=== PATIENT | male | born 1960 | race Caucasian/White ===

== ENCOUNTER 2016-07-09 17:14 | Emergency (ER) | payer MEDICAID, OTHER, SELFPAY ==
[~2016-07-09] VITALS: Ht 175.3 cm; Wt 125.5 kg
[2016-07-09 17:17] VITALS: BP 137/85
== END 2016-07-09 19:44 ==
LOC: ED 19:00
DX: S06.9X0A Unspecified intracranial injury without loss of consciousness, initial encounter (principal); S50.01XA Contusion of right elbow, initial encounter; I10 Essential (primary) hypertension; E78.5 Hyperlipidemia, unspecified; M54.30 Sciatica, unspecified side; W11.XXXA Fall on and from ladder, initial encounter; Y93.89 Activity, other specified; Y92.89 Other specified places as the place of occurrence of the external cause; Y99.8 Other external cause status
CPT/HCPCS: 70450; 72050; 72110

== ENCOUNTER 2016-07-15 16:58 | Emergency (ER) | payer OTHER ==
[~2016-07-15] VITALS: Ht 172.7 cm; Wt 122.2 kg
[2016-07-15] MEDS ORDERED: DIAZEPAM 5 MG TABLET ONE (18:16)
[2016-07-15] MEDS ORDERED: HYDROmorphone 1 MG/ML, 1ML ONE (18:16)
[2016-07-15] MEDS ORDERED: KETOROLAC 30 MG/1 ML ONE (18:17)
[2016-07-15] MEDS ORDERED: ONDANSETRON ODT 4 MG ONE (18:17)
[2016-07-15] MEDS ORDERED: DEXAMETHASONE 4 MG/ML, 5ML ONE (18:17)
[2016-07-15] MEDS ORDERED: DEXAMETHASONE 4 MG/ML, 1ML PO ONE (18:30)
[2016-07-15] MEDS ORDERED: ONDANSETRON ODT 4 MG PO ONE (18:30)
[2016-07-15] MEDS ORDERED: HYDROmorphone 1 MG/ML, 1ML IM ONE (18:30)
[2016-07-15] MEDS ORDERED: KETOROLAC 30 MG/1 ML IM ONE (18:30)
[2016-07-15] MEDS ORDERED: DIAZEPAM 5 MG TABLET PO ONE (18:30)
[2016-07-15 19:22] VITALS: BP 139/86
== END 2016-07-15 20:04 | disposition home or self-care (01) ==
LOC: ED 19:58
DX: S33.5XXA Sprain of ligaments of lumbar spine, initial encounter (principal); S13.9XXA Sprain of joints and ligaments of unspecified parts of neck, initial encounter; S23.9XXA Sprain of unspecified parts of thorax, initial encounter; S06.0X0A Concussion without loss of consciousness, initial encounter; M54.16 Radiculopathy, lumbar region; E78.5 Hyperlipidemia, unspecified; I10 Essential (primary) hypertension; W11.XXXA Fall on and from ladder, initial encounter; Y93.89 Activity, other specified; Y99.8 Other external cause status; Y92.89 Other specified places as the place of occurrence of the external cause
CPT/HCPCS: 72072; 96372; 99284; J1100; J1170; J1885; Q0162

== ENCOUNTER 2016-09-12 12:42 | Emergency (ER) | payer OTHER ==
[~2016-09-12] VITALS: Ht 172.7 cm; Wt 118.2 kg
[2016-09-12 12:54] VITALS: BP 129/86
== END 2016-09-12 14:11 | disposition home or self-care (01) ==
LOC: ED 13:40
DX: G89.11 Acute pain due to trauma (principal); M54.5 Low back pain; M25.552 Pain in left hip; M25.551 Pain in right hip; M25.561 Pain in right knee; E78.5 Hyperlipidemia, unspecified; I10 Essential (primary) hypertension
CPT/HCPCS: 99283

== ENCOUNTER 2016-09-20 08:31 | Emergency (ER) | payer OTHER ==
[~2016-09-20] VITALS: Ht 175.3 cm; Wt 116.0 kg
[2016-09-20] MEDS ORDERED: HYDROmorphone 1 MG/ML, 1ML IM ONE (09:00)
[2016-09-20] MEDS ORDERED: DIAZEPAM 5 MG TABLET PO ONE (09:00)
[2016-09-20] MEDS ORDERED: KETOROLAC 30 MG/1 ML IM ONE (09:00)
[2016-09-20] MEDS ORDERED: HYDROmorphone 1 MG/ML, 1ML ONE (09:04)
[2016-09-20] MEDS ORDERED: DIAZEPAM 5 MG TABLET ONE (09:05)
[2016-09-20] MEDS ORDERED: KETOROLAC 30 MG/1 ML ONE (09:05)
[2016-09-20 11:04] VITALS: BP 133/68
== END 2016-09-20 11:08 | disposition home or self-care (01) ==
LOC: ED 09:00
DX: G89.11 Acute pain due to trauma (principal); E78.5 Hyperlipidemia, unspecified; I10 Essential (primary) hypertension; M10.9 Gout, unspecified; M51.36 Other intervertebral disc degeneration, lumbar region; M51.16 Intervertebral disc disorders with radiculopathy, lumbar region; M51.37 Other intervertebral disc degeneration, lumbosacral region; W11.XXXA Fall on and from ladder, initial encounter; Y93.89 Activity, other specified; Y99.0 Civilian activity done for income or pay; Y92.69 Other specified industrial and construction area as the place of occurrence of the external cause
CPT/HCPCS: 72110; 73564; 96372; 99284; J1170; J1885

== ENCOUNTER → 2017-02-25 | Outpatient (CLI) | payer OTHER ==
[~2017-02-25] MED LIST: FENTANYL PF 100 MCG/2ML ONE; MIDAZOLAM 1 MG/ML, 5ML ONE
== END | disposition home or self-care (01) ==
LOC: RAD 09:51
PROVIDERS: ATTEND Pain Medicine Interventional Pain Medicine
DX: M48.061 Spinal stenosis, lumbar region without neurogenic claudication (principal); G95.89 Other specified diseases of spinal cord; M48.36 Traumatic spondylopathy, lumbar region
CPT/HCPCS: 72141; 72148; 99156; 99157; J2250; J3010

== ENCOUNTER 2017-12-20 21:26 | Emergency (ER) | payer MEDICAID, OTHER ==
[~2017-12-20] VITALS: Ht 172.7 cm; Wt 123.6 kg
[2017-12-20] MEDS ORDERED: MAALOX/HYOSCYAMINE/LIDOCAINE 45 ML BTL PO ONE (22:00)
[2017-12-20] MEDS ORDERED: ACETAMINOPHEN 500 MG TABLET PO ONE (22:00)
[2017-12-20 22:07] LABS: BASOPHILS # (AUTO) 0.03 x10^3/uL (0-0.1); BASOPHILS % (AUTO) 0 % (0-1); EOSINOPHILS % (AUTO) 3 % (1-7); LYMPHOCYTES # (AUTO) 2.23 x10^3/uL (1-3.4); LYMPHOCYTES % (AUTO) 30 % (22-44); MD NO; MEAN CORPUSCULAR HEMOGLOBIN 32.7 pg (27.5-34.5); MEAN CORPUSCULAR VOLUME 93.4 fL (81-97); MEAN PLATELET VOLUME 8.1 fL (7.4-10.4); MONOCYTES # (AUTO) 0.45 x10^3/uL (0.2-0.8); MONOCYTES % (AUTO) 6 % (2-9); NEUTROPHILS # (AUTO) 4.66 x10^3/uL (1.8-6.8); NEUTROPHILS % (AUTO) 62 % (42-75); PLATELET COUNT 266 x10^3/uL (130-400); RED BLOOD COUNT 4.88 x10^6/uL (4.38-5.82); RED CELL DISTRIBUTION WIDTH 13.7 % (9.4-14.8)
[2017-12-20] MEDS ORDERED: ACETAMINOPHEN 500 MG TABLET ONE (22:09)
[2017-12-20] MEDS ORDERED: MAALOX/HYOSCYAMINE/LIDOCAINE 45 ML BTL ONE (22:10)
[2017-12-20 22:19] LABS: ALBUMIN 3.8 g/dL (3.4-5.0); ANION GAP 9 mmol/L (5-15); CALCIUM 8.7 mg/dL (8.5-10.1); CHLORIDE 106 mmol/L (98-107); CREATININE 1.01 mg/dL (0.7-1.3)
[2017-12-20 22:23] LABS: ALKALINE PHOSPHATASE 114 U/L (45-117); BILIRUBIN,TOTAL 0.3 mg/dL (0.2-1.0); TOTAL PROTEIN 7.5 g/dL (6.4-8.2); TROPONIN I < 0.015 ng/mL (0.000-0.045)
[2017-12-20 22:41] LABS: ALANINE AMINOTRANSFERASE 60 U/L (12-78)
[2017-12-20 23:23] VITALS: BP 132/75
== END 2017-12-20 23:24 | disposition home or self-care (01) ==
LOC: ED 23:12
DX: K29.00 Acute gastritis without bleeding (principal); E78.5 Hyperlipidemia, unspecified; I10 Essential (primary) hypertension; F17.200 Nicotine dependence, unspecified, uncomplicated
CPT/HCPCS: 36415; 71045; 80053; 83690; 84484; 85025; 93005; 99285

== ENCOUNTER 2018-01-24 05:25 | Emergency (ER) | payer MEDICAID ==
[~2018-01-24] VITALS: Ht 172.7 cm; Wt 118.1 kg
[2018-01-24 05:27] VITALS: BP 169/100
[2018-01-24] MEDS ORDERED: TRAMADOL (05:31)
[2018-01-24] MEDS ORDERED: FLEXERIL (05:31)
[2018-01-24] MEDS ORDERED: TYLENOL (05:31)
[2018-01-24] MEDS ORDERED: OXYcodone/APAP 5/325MG TABLET ONE (05:49)
[2018-01-24] MEDS ORDERED: OXYcodone/APAP 5/325MG TABLET PO ONE (06:00)
== END 2018-01-24 06:00 | disposition home or self-care (01) ==
LOC: ED 05:33
DX: K02.9 Dental caries, unspecified (principal); K08.89 Other specified disorders of teeth and supporting structures; G89.29 Other chronic pain; I10 Essential (primary) hypertension; E78.5 Hyperlipidemia, unspecified
CPT/HCPCS: 99283

== ENCOUNTER 2019-04-22 02:29 | Emergency (ER) | payer SELFPAY ==
[~2019-04-22] VITALS: Ht 172.7 cm; Wt 121.7 kg
[~2019-04-22 02:29] MED LIST changes: -FENTANYL PF 100 MCG/2ML ONE; +FLEXERIL; -MIDAZOLAM 1 MG/ML, 5ML ONE; +TRAMADOL; +TYLENOL
--- NOTE | 2019-04-22 03:38 | NUR ---
PT TO RM FROM LOBBY. CARE ASSUMED AND UA SENT. ERP IN TO EVAL.
[2019-04-22 03:39] LABS: MICROSCOPIC NOT IND
[2019-04-22 03:42] LABS: CULTURE INDICATED? NO
[2019-04-22 04:10] LABS: BASOPHILS # (AUTO) 0.02 x10^3/uL (0-0.1); BASOPHILS % (AUTO) 0 % (0-1); EOSINOPHILS # (AUTO) 0.17 x10^3/uL (0-0.4); EOSINOPHILS % (AUTO) 2 % (1-7); LYMPHOCYTES # (AUTO) 2.03 x10^3/uL (1-3.4); LYMPHOCYTES % (AUTO) 22 % (22-44); MD NO; MEAN CORPUSCULAR HEMOGLOBIN 32.6 pg (27.5-34.5); MEAN CORPUSCULAR HGB CONC 35.4 g/dL (33.2-36.2); MEAN CORPUSCULAR VOLUME 92.1 fL (81-97); MEAN PLATELET VOLUME 7.8 fL (7.4-10.4); MONOCYTES # (AUTO) 0.68 x10^3/uL (0.2-0.8); MONOCYTES % (AUTO) 8 % (2-9); NEUTROPHILS # (AUTO) 6.24 x10^3/uL (1.8-6.8); NEUTROPHILS % (AUTO) 68 % (42-75); PLATELET COUNT 291 x10^3/uL (130-400); RED BLOOD COUNT 4.79 x10^6/uL (4.38-5.82); RED CELL DISTRIBUTION WIDTH 13.9 % (9.4-14.8)
[2019-04-22 04:25] LABS: ALBUMIN 3.5 g/dL (3.4-5.0); CALCIUM 8.5 mg/dL (8.5-10.1)
[2019-04-22 04:33] LABS: ALKALINE PHOSPHATASE 89 U/L (45-117); BILIRUBIN,TOTAL 0.6 mg/dL (0.2-1.0); CREATININE 1.07 mg/dL (0.7-1.3)
[2019-04-22 04:51] VITALS: BP 122/83
--- NOTE | 2019-04-22 04:51 | NUR ---
PT SITTING IN CHAIR. DENIES NEEDS AT THIS TIME. CALL LIGHT IN REACH. PT UPDATED TO POC--AWAITING LAB RESULTS.
--- NOTE | 2019-04-22 05:15 | NUR ---
REPORT RECEIVED FROM SHIRLEY CLIFTON. ASSUMED CARE OF PT
[2019-04-22 05:18] LABS: ALANINE AMINOTRANSFERASE 46 U/L (12-78); ANION GAP 7 mmol/L (5-15); CHLORIDE 107 mmol/L (98-107)
[2019-04-22 05:20] LABS: TOTAL PROTEIN 7.2 g/dL (6.4-8.2)
--- NOTE | 2019-04-22 06:05 | NUR ---
Patient/Caregiver given discharge instructions and they have confirmed that they understand the instructions. Patient ambulatory with steady gait.
== END 2019-04-22 06:07 | disposition home or self-care (01) ==
LOC: ED 05:07
DX: M54.5 Low back pain (principal); I10 Essential (primary) hypertension; E78.5 Hyperlipidemia, unspecified; G89.29 Other chronic pain
CPT/HCPCS: 36415; 80053; 81003; 83690; 85025; 99283

== ENCOUNTER 2019-05-04 14:39 | Emergency (ER) | payer SELFPAY ==
[~2019-05-04] VITALS: Ht 167.6 cm; Wt 126.1 kg
[2019-05-04] MEDS ORDERED: KETOROLAC 30 MG/1 ML IM ONE (15:00)
[2019-05-04] MEDS ORDERED: ALBUTEROL/IPRATROPIUM 2.5MG/0.5MG, 3 ML NPPB ONE ×2 (15:00→16:00)
[2019-05-04] MEDS ORDERED: SODIUM CHLORIDE FLUSH 10ML SYR IVF ONE (15:00)
[2019-05-04 15:13] LABS: BASOPHILS % (AUTO) 0 % (0-1); EOSINOPHILS # (AUTO) 0.01 x10^3/uL (0-0.4); EOSINOPHILS % (AUTO) 0 % (1-7); LYMPHOCYTES # (AUTO) 0.94 x10^3/uL (1-3.4); LYMPHOCYTES % (AUTO) 12 % (22-44); MD NO; MEAN CORPUSCULAR HEMOGLOBIN 31.5 pg (27.5-34.5); MEAN CORPUSCULAR HGB CONC 34.1 g/dL (33.2-36.2); MEAN CORPUSCULAR VOLUME 92.6 fL (81-97); MEAN PLATELET VOLUME 7.4 fL (7.4-10.4); MONOCYTES # (AUTO) 0.98 x10^3/uL (0.2-0.8); MONOCYTES % (AUTO) 13 % (2-9); NEUTROPHILS # (AUTO) 5.73 x10^3/uL (1.8-6.8); NEUTROPHILS % (AUTO) 75 % (42-75); PLATELET COUNT 252 x10^3/uL (130-400); RED BLOOD COUNT 4.63 x10^6/uL (4.38-5.82); RED CELL DISTRIBUTION WIDTH 14.6 % (9.4-14.8)
--- NOTE | 2019-05-04 15:16 | NUR ---
PT WITH C/O SOB/CHEST PAIN WITH COUGH X 3 DAYS. PT STATES HE HAD JUST COMPLETED A ROUND OF ABX D/T "LUMP IN L NECK". NOW WITH COUGH. PT DENIES HOME O2 USE, PT SATING 90% RA AT THIS TIME.
[2019-05-04 15:24] LABS: ALANINE AMINOTRANSFERASE 45 U/L (12-78); ALBUMIN 3.7 g/dL (3.4-5.0); ANION GAP 8 mmol/L (5-15); CALCIUM 8.4 mg/dL (8.5-10.1); CHLORIDE 101 mmol/L (98-107); CREATININE 0.97 mg/dL (0.7-1.3)
[2019-05-04] MEDS ORDERED: KETOROLAC 30 MG/1 ML ONE (15:25)
[2019-05-04] MEDS ORDERED: ALBUTEROL/IPRATROPIUM 2.5MG/0.5MG, 3 ML ONE ×2 (15:26→16:04)
[2019-05-04 15:28] LABS: ALKALINE PHOSPHATASE 78 U/L (45-117); BILIRUBIN,TOTAL 0.4 mg/dL (0.2-1.0); TOTAL PROTEIN 7.3 g/dL (6.4-8.2); TROPONIN I < 0.015 ng/mL (0.000-0.045)
--- NOTE | 2019-05-04 16:52 | NUR ---
PIV INITIATED, PT TO GO FOR CTA
[2019-05-04] MEDS ORDERED: OMNIPAQUE 350 MG/ML, 100ML BOTTLE ONE (17:53)
--- NOTE | 2019-05-04 17:54 | NUR ---
PT BACK FROM CT. PT WITH C/O SOB WITH LYING FLAT DURING CT, PT PLACED ON 2L NC
[2019-05-04 17:55] VITALS: BP 126/83
== END 2019-05-04 19:14 | disposition home or self-care (01) ==
LOC: ED 19:04
DX: J44.1 Chronic obstructive pulmonary disease with (acute) exacerbation (principal); I10 Essential (primary) hypertension; R51 Headache; R11.0 Nausea; R00.0 Tachycardia, unspecified; R06.00 Dyspnea, unspecified; M79.10 Myalgia, unspecified site
CPT/HCPCS: 36415; 71045; 71275; 80053; 83880; 84484; 85025; 93005; 94640; 96372; 99285; J1885; J7512; J7620; Q9967

== ENCOUNTER 2019-09-01 02:19 | Emergency (ER) | payer SELFPAY ==
[~2019-09-01] VITALS: Ht 172.7 cm; Wt 123.2 kg
--- NOTE | 2019-09-01 02:46 | NUR ---
Pt presents from home with c/o "abdominal pain all over" x several days. Pt denies relieving factors and states he couldn't take it any longer and decided to come in. Pt denies N/V/D at this time. Pt resting comfortably in bed, call monet in reach, warm blanket provided, and informed pt on plan of care.
[2019-09-01 02:53] LABS: BASOPHILS # (AUTO) 0.07 x10^3/uL (0-0.1); BASOPHILS % (AUTO) 1 % (0-1); EOSINOPHILS # (AUTO) 0.27 x10^3/uL (0-0.4); EOSINOPHILS % (AUTO) 3 % (1-7); LYMPHOCYTES # (AUTO) 2.59 x10^3/uL (1-3.4); LYMPHOCYTES % (AUTO) 31 % (22-44); MD NO; MEAN CORPUSCULAR HEMOGLOBIN 31.5 pg (27.5-34.5); MEAN CORPUSCULAR HGB CONC 34.5 g/dL (33.2-36.2); MEAN CORPUSCULAR VOLUME 91.4 fL (81-97); MEAN PLATELET VOLUME 7.4 fL (7.4-10.4); MONOCYTES # (AUTO) 0.75 x10^3/uL (0.2-0.8); MONOCYTES % (AUTO) 9 % (2-9); NEUTROPHILS # (AUTO) 4.56 x10^3/uL (1.8-6.8); NEUTROPHILS % (AUTO) 55 % (42-75); PLATELET COUNT 267 x10^3/uL (130-400); RED BLOOD COUNT 4.81 x10^6/uL (4.38-5.82); RED CELL DISTRIBUTION WIDTH 13.7 % (9.4-14.8)
[2019-09-01 03:05] LABS: ALBUMIN 3.7 g/dL (3.4-5.0); ANION GAP 3 mmol/L (5-15); CALCIUM 8.8 mg/dL (8.5-10.1); CHLORIDE 107 mmol/L (98-107)
[2019-09-01 03:08] LABS: ALANINE AMINOTRANSFERASE 41 U/L (12-78); ALKALINE PHOSPHATASE 98 U/L (45-117); BILIRUBIN,TOTAL 0.5 mg/dL (0.2-1.0); CREATININE 0.95 mg/dL (0.7-1.3); TOTAL PROTEIN 7.1 g/dL (6.4-8.2)
[2019-09-01] MEDS ORDERED: OMNIPAQUE 350 MG/ML, 100ML BOTTLE ONE (03:37)
[2019-09-01 04:52] VITALS: BP 142/78
== END 2019-09-01 04:54 | disposition home or self-care (01) ==
LOC: ED 04:29
DX: K29.50 Unspecified chronic gastritis without bleeding (principal); R10.84 Generalized abdominal pain; K59.00 Constipation, unspecified; F17.210 Nicotine dependence, cigarettes, uncomplicated; I10 Essential (primary) hypertension; E78.5 Hyperlipidemia, unspecified
CPT/HCPCS: 36415; 74177; 80053; 83690; 85025; 99285; 99406; Q9967

== ENCOUNTER 2020-01-17 06:13 | Emergency (ER) | payer OTHER ==
[~2020-01-17] VITALS: Ht 172.7 cm; Wt 117.3 kg
[2020-01-17 06:16] VITALS: BP 161/101
[2020-01-17] MEDS ORDERED: LIDOCAINE-MPF 1%, 5ML ONE (06:36)
[2020-01-17] MEDS ORDERED: DIPH,PERTUSS(ACELL),TET VAC/PF 0.5 ML IM-VACC ONE ×2 (06:40→07:00)
[2020-01-17] MEDS ORDERED: LIDOCAINE-MPF 1%, 5ML INFIL ONE (07:00)
--- NOTE | 2020-01-17 07:30 | NUR ---
DRESSING PLACED ON LAC. PT INSTRUCTED TO RETURN IN 7-10 DAYS FOR SUTURE REMOVAL. PT VERBALIZED UNDERSTANDING. AMBULATORY AT DISCHARGE.
== END 2020-01-17 07:36 | disposition home or self-care (01) ==
LOC: ED 07:28
DX: S61.412A Laceration without foreign body of left hand, initial encounter (principal); W26.0XXA Contact with knife, initial encounter; Y93.89 Activity, other specified; Y92.098 Other place in other non-institutional residence as the place of occurrence of the external cause; Y99.8 Other external cause status
CPT/HCPCS: 12041; 90471; 90715; 99284

== ENCOUNTER 2020-04-12 01:14 | Emergency (ER) | payer OTHER ==
[~2020-04-12] VITALS: Ht 172.7 cm; Wt 124.0 kg
[2020-04-12] MEDS ORDERED: SODIUM CHLORIDE FLUSH 10ML SYR IVF ONE (02:00)
[2020-04-12 02:27] LABS: ALANINE AMINOTRANSFERASE 47 U/L (12-78); ALBUMIN 3.7 g/dL (3.4-5.0); ANION GAP 5 mmol/L (5-15); CALCIUM 8.4 mg/dL (8.5-10.1); CHLORIDE 112 mmol/L (98-107)
[2020-04-12 02:29] LABS: BASOPHILS % (AUTO) 1 % (0-1); EOSINOPHILS % (AUTO) 3 % (1-7); LYMPHOCYTES % (AUTO) 34 % (22-44); MD NO; MEAN CORPUSCULAR HEMOGLOBIN 31.5 pg (27.5-34.5); MEAN CORPUSCULAR HGB CONC 34.2 g/dL (33.2-36.2); MEAN PLATELET VOLUME 7.8 fL (7.4-10.4); MONOCYTES % (AUTO) 10 % (2-9); NEUTROPHILS % (AUTO) 51 % (42-75); PLATELET COUNT 242 x10^3/uL (130-400)
[2020-04-12 02:31] LABS: ALKALINE PHOSPHATASE 88 U/L (45-117); BILIRUBIN,TOTAL 0.2 mg/dL (0.2-1.0); TOTAL PROTEIN 6.8 g/dL (6.4-8.2); TROPONIN I < 0.015 ng/mL (0.000-0.045)
--- NOTE | 2020-04-12 02:33 | NUR ---
US at bedside
[2020-04-12] MEDS ORDERED: HYDR-826 PO (03:07)
[2020-04-12] MEDS ORDERED: NAPR-996 PO (03:07)
[2020-04-12] MEDS ORDERED: QUET25TA5 PO (03:11)
--- NOTE | 2020-04-12 03:12 | NUR ---
patient resting in bed c/o 3/10 pain in BLE and requesting naproxyn. Dr. Pittman notified. will continue to monitor.
[2020-04-12] MEDS ORDERED: NAPROXEN 500 MG TABLET ONE (03:16)
[2020-04-12] MEDS ORDERED: NAPROXEN 500 MG TABLET PO ONE (03:30)
--- NOTE | 2020-04-12 03:59 | NUR ---
discharge instructions reviewed with patient and in-depth review and education regarding diet and fluid intake. patient had no further questions at this time. prescription handed directly to patient. all personal belongings with patient on dc. no IV placed during this visit. steady gait in room and to lobby
[2020-04-12 04:01] VITALS: BP 114/74
== END 2020-04-12 04:05 | disposition home or self-care (01) ==
LOC: ED 01:44
DX: R06.00 Dyspnea, unspecified (principal); R60.0 Localized edema; R07.89 Other chest pain; F17.210 Nicotine dependence, cigarettes, uncomplicated; E78.5 Hyperlipidemia, unspecified; G89.29 Other chronic pain; Z87.11 Personal history of peptic ulcer disease
CPT/HCPCS: 36415; 71045; 80053; 83880; 84484; 85025; 93005; 93970; 99285; 99406

== ENCOUNTER 2020-09-04 12:27 | Emergency (ER) | payer OTHER ==
[~2020-09-04] VITALS: Ht 172.7 cm; Wt 118.0 kg
[~2020-09-04 12:27] MED LIST changes: +HYDR-826 PO; +NAPR-996 PO; +QUET25TA5 PO
[2020-09-04] MEDS ORDERED: KETOROLAC 30 MG/1 ML IM ONE (14:30)
[2020-09-04] MEDS ORDERED: DIAZEPAM 5 MG TABLET PO ONE (14:30)
[2020-09-04] MEDS ORDERED: DIAZEPAM 5 MG TABLET ONE (14:34)
[2020-09-04] MEDS ORDERED: KETOROLAC 30 MG/1 ML ONE (14:34)
[2020-09-04 15:49] VITALS: BP 144/79
== END 2020-09-04 15:50 | disposition home or self-care (01) ==
LOC: ED 15:30
DX: S39.012A Strain of muscle, fascia and tendon of lower back, initial encounter (principal); M51.36 Other intervertebral disc degeneration, lumbar region; E78.5 Hyperlipidemia, unspecified; F17.210 Nicotine dependence, cigarettes, uncomplicated; X58.XXXA Exposure to other specified factors, initial encounter; Y93.89 Activity, other specified; Y92.89 Other specified places as the place of occurrence of the external cause; Y99.8 Other external cause status
CPT/HCPCS: 72110; 96372; 99283; J1885